=== PATIENT | male | born 1970 | race Caucasian/White ===

== ENCOUNTER → 2016-12-30 | Outpatient (CLI) | payer OTHER ==
[2016-12-30 10:23] LABS: ALBUMIN 4.6 g/dL (3.5-5.0); BUN/CREATININE RATIO 22.2 (6.0-26.0); CALCIUM 9.9 mg/dL (8.4-10.2); POTASSIUM 4.3 mmol/L (3.6-5.0); TOTAL BILIRUBIN 0.5 mg/dL (0.2-1.3); TOTAL PROTEIN 8.2 g/dL (6.3-8.2)
== END ==
LOC: LAB 09:55
PROVIDERS: Family Medicine
DX: E66.9 Obesity, unspecified (principal)

== ENCOUNTER → 2017-01-05 | Outpatient (CLI) | payer OTHER | LOC: LAB 07:58 | DX: E66.9 Obesity, unspecified (principal); E78.5 Hyperlipidemia, unspecified ==

== ENCOUNTER → 2017-07-13 | Day surgery (SDC) | payer BC | LOC: MSO 07:16 | DX: R19.7 Diarrhea, unspecified (principal); J45.909 Unspecified asthma, uncomplicated | CPT/HCPCS: 00811; A4649; J2405; J2704; J3010; J7120 ==